=== PATIENT | male | born 1980 | race Caucasian/White ===

== ENCOUNTER 2020-09-25 01:45 | Emergency (ER) | payer OTHER, SELFPAY ==
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
[2020-09-25 01:57] VITALS: BP 153/100; PULSE 97; RESP 20; TEMP 36.6; O2SAT 100
[2020-09-25 02:29] LABS: Amphetamine Screen Urine Negative (Negative); Barbiturate Screen Urine Negative (Negative); Benzodiazepines Screen Urine Negative (Negative); Cannabinoid Screen Urine Negative (Negative); Cocaine Screen Urine Negative (Negative); Methadone Screen Urine Negative (Negative); Opiate Screen Urine Negative (Negative); Phencyclidine Screen Urine Negative (Negative)
[2020-09-25 02:34] LABS: Ethanol < 3 mg/dL (0-6)
[2020-09-25 02:39] VITALS: BP 140/97; PULSE 87; RESP 20; O2SAT 98
== END 2020-09-25 02:43 | disposition home or self-care (01) ==
PROVIDERS: Emergency Provider Emergency Medicine
DX: Z01.89 Encounter for other specified special examinations (principal)
CPT/HCPCS: 36415; 80307; 99282; 99283